=== PATIENT | male | born 2000 | race Caucasian/White ===

== ENCOUNTER 2019-03-27 13:19 | Emergency (ER) | payer BC, OTHER ==
[2019-03-27 13:23] VITALS: TEMP 97.3
--- NOTE | 2019-03-27 15:18 | US ---
EXAMINATION TYPE: US scrotum with doppler. Grayscale and color Doppler Duplex imaging performed of t he scrotum. DATE OF EXAM: 03/27/2019 COMPARISON: NONE CLINICAL HISTORY: testicular pain on right after injury EXAM MEASUREMENTS: TESTICLES: Right Testicle: 3.8 x 2.2 x 2.3 cm Left Testicle: 4.2 x 2.3 x 3.3 cm EPIDIDYMIS HEAD: Right Epididymis: 0.8 cm Left Epididymis: 0.6 cm Doppler performed to assess for testicular vascularity; color flow, vascular waveforms noted to both testes. Presence of hydroceles: no Presence of varicoceles: no 2 hyperechoic areas measuring 0.9 x 0.5 x 0.9cm and upper measuring 0.8 x 0.5 x 0.8cm within the righ t testis. There is no significant mass effect. No significant intralesional vascularity. IMPRESSION: The right testis shows abnormal foci of increased echogenicity. Differential diagnostic c onsiderations include hematoma versus, lipomatosis, malignancy not excluded, although typically testi cular malignancy shows decreased echogenicity, recommend urology consult
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
[2019-03-27 16:11] LABS: Amorphous Sediment,Urine Occasional /hpf; Appearance,Urine Cloudy (Clear); Bilirubin,Urine Negative (Negative); Blood,Urine Negative (Negative); Color,Urine Yellow; Glucose,Urine (UA) Negative (Negative); Hyaline Casts,Urine 12 /lpf (0-2); Ketones,Urine Negative (Negative); Leukocyte Esterase,Urine Negative (Negative); Mucus,Urine Rare /hpf; Nitrite,Urine Negative (Negative); PH, Urine 7.5 (5.0-8.0); Protein,Urine Negative (Negative); Specific Gravity,Urine 1.021 (1.001-1.035); WBC,Urine 5 /hpf (0-5)
[2019-03-27 16:13] VITALS: BP 110/70; PULSE 60; RESP 16
== END 2019-03-27 16:01 | disposition home or self-care (01) ==
LOC: EC 13:19
DX: S39.94XA Unspecified injury of external genitals, initial encounter (principal); W50.0XXA Accidental hit or strike by another person, initial encounter
CPT/HCPCS: 36415; 76870; 81001; 82105; 83615; 93975; 99284

== ENCOUNTER 2022-10-05 23:53 | Emergency (ER) | payer BC, OTHER ==
[2022-10-06 00:01] VITALS: BP 147/70; PULSE 75; RESP 18; TEMP 97.8
--- NOTE | 2022-10-06 00:24 | ED ---
General Adult HPI - General Chief complaint: Psychiatric Symptoms Stated complaint: Mental Health Time Seen by Provider: 10/06/22 00:13 Source: patient Mode of arrival: ambulatory Limitations: no limitations - History of Present Illness Initial comments: Dictation was produced using [employer] dictation software. please excuse any grammatical, word or spelling errors. Chief Complaint: 22-year-old male with depression and suicidal ideation History of Present Illness:. 2-year-old male he has no medical complaints states he feels suicidal. He does not have a plan. Patient feels depressed because he feels like he can get had an light. No visual auditory hallucinations. No homicidal ideation. The ROS documented in this emergency department record has been reviewed and confirmed by me. Those systems with pertinent positive or negative responses have been documented in the HPI. All other systems are other negative and/or no ncontributory. PHYSICAL EXAM: General Impression: Alert and oriented x3, not in acute distress HEENT: Normocephalic atraumatic, extra-ocular movements intact, pupils equal and reactive to light bilaterally, mucous membranes moist. Cardiovascular: Heart regular rate and rhythm Chest: Able to complete full sentences, no retractions, no tachypnea Musculoskeletal: no peripheral edema Motor: no focal deficits noted Neurological: CN II-XII grossly intact, no focal motor or sensory deficits noted Skin: Intact with no visualized rashes Psych: Normal affect and mood ED course: 22-year-old male presents emergency department for suicidal ideation. Signs upon arrival are within acceptable limits. Patient medically cleared for EPS evaluation. Nursing notes and chart review was performed Was pt. sent in by a medical professional or institution (Dr. PA, [employer], urgent care, hospital, or senior care...) When possible be specific @ -No Did you speak to anyone other than the patient for history (EMS, parent, family, police, friend...)? What history was obtained from this source @ -No Did you review nursing and triage notes (agree or disagree)? Why? @ -I reviewed and agree with nursing and triage notes Were old charts reviewed (outside hosp., previous admission, EMS record, old EKG, old radiological studies, urgent care reports/EKG's, senior care records)? Report findings @ -No old charts were reviewed Differential Diagnosis (chest pain, altered mental status, abdominal pain women, abdominal pain men, vaginal bleeding, musculoskeletal, weakness, fever, dyspnea, syncope, headache, dizziness, GI bleed, back pain, seizure, CVA, palpatations, mental health)? @ -Differential Mental Health: Depression, anxiety, bipolar, psychosis, schizophrenia, borderline personality, situational depression, adjustment disorder, behavioral disorder, brain tumor, malingering, substance abuse, encephalopathy, medication reaction, dementia, hypothyroidism, degenerative neurologic disorder, lupus.... This is not meant to be all-inclusive list EKG interpreted by me (3pts min.). @ -None done X-rays interpreted by me (1pt min.). @ -None done CT interpreted by me (1pt min.). @ -None done U/S interpreted by me (1pt. min.). @ -None done What testing was considered but not performed or refused? (CT, X-rays, U/S, labs)? Why? @ -None What meds were considered but not given or refused? Why? @ -None Did you discuss the management of the patient with other professionals (professionals i.e. , PA, [employer], lab, RT, psych nurse, social media coordinator, truck hop, teacher, animal park code enforcement officer, casework manager)? Give summary @ -Emergency psych service nurse Was smoking cessation discussed for >3mins.? @ -No Was critical care preformed (if so, how long)? @ -No Were there social determinants of health that impacted care today? How? (Homelessness, low income, unemployed, alcoholism, drug addiction, transportation, low edu. Level, literacy, decrease access to med. care, senior living, rehab)? @ -No Was there de-escalation of care discussed even if they declined (Discuss DNR or withdrawal of care, Hospice)? DNR status @ -No What co-morbidities impacted this encounter? (DM, HTN, Smoking, COPD, CAD, Ca ncer, CVA, ARF, Chemo, Hep., AIDS, mental health diagnosis, sleep apnea, morbid obesity)? @ -None Was patient admitted / discharged? Hospital course, mention meds given and route, prescriptions, significant lab abnormalities, going to OR and other pertinent info. @ -22-year-old male presents emergency department for depression suicidal idea tion. Patient was medically cleared for EPS. EPS evaluated patient and recommended discharge with outpatient plan. Patient agreeable with disposition plan. Patient discharged. Undiagnosed new problem with uncertain prognosis? @ -No Drug Therapy requiring intensive monitoring for toxicity (Heparin, Nitro, Insulin, Cardizem)? @ -No Were any procedures done? @ -No Diagnosis/symptom? Acute, or Chronic, or Acute on Chronic? Uncomplicated (without systemic symptoms) or Complicated (systemic symptoms)? @ -1. Acute depression Side effects of treatment? @ -No Exacerbation, Progression, or Severe Exacerbation? @ -No Poses a threat to life or bodily function? How? (Chest pain, [place], [place], pneumonia, PE, COPD, DKA, ARF, appy, cholecystitis, CVA, Diverticulitis, Homicidal, Suicidal, threat to staff... and all critical care pts) @ -yes - Related Data Allergies Allergy/AdvReac Type Severity Reaction Status Date / Time No Known Allergies Allergy Verified 10/05/22 23:57 Review of Systems ROS Statement: Those systems with pertinent positive or pertinent negative responses have been documented in the HPI. ROS Other: All systems not noted in ROS Statement are negative. Past Medical History Past Medical History: No Reported History History of Any Multi-Drug Resistant Organisms: None Reported Past Surgical History: No Surgical Hx Reported Past Psychological History: ADD/ADHD Smoking Status: Never smoker Past Alcohol Use History: Occasional Past Drug Use History: None Reported General Exam Limitations: no limitations Course Vital Signs 10/05/22 23:57 Temperature 97.8 F Pulse Rate 75 Respiratory 18 Rate Blood Pressure 147/70 O2 Sat by Pulse 98 Oximetry Disposition Clinical Impression: Depression Disposition: HOME SELF-CARE Condition: Good Instructions (If sedation given, give patient instructions): Suicide Prevention (ED) Is patient prescribed a controlled substance at d/c from ED?: No Referrals: Krystal Hoffmann III, MD [Primary Care Provider] - 1-2 days Time of Disposition: 02:58
== END 2022-10-06 03:07 | disposition home or self-care (01) ==
LOC: EC 23:53
DX: F32.A Depression, unspecified (principal); F90.9 Attention-deficit hyperactivity disorder, unspecified type
CPT/HCPCS: 82075; 99284